=== PATIENT | male | born 1960 | race Caucasian/White ===

== ENCOUNTER → 2016-07-29 | Outpatient (CLI) | payer OTHER | LOC: GMAB 10:51 | PROVIDERS: ATTEND Family Medicine | DX: Z00.01 Encounter for general adult medical examination with abnormal findings (principal) ==

== ENCOUNTER → 2017-12-09 | Outpatient (CLI) | payer OTHER | LOC: GMAB 10:48 | PROVIDERS: ATTEND Family Medicine | DX: Z00.01 Encounter for general adult medical examination with abnormal findings (principal) ==

== ENCOUNTER → 2018-11-29 | Outpatient (CLI) | payer OTHER | LOC: GMAE 12:23 | PROVIDERS: ATTEND Family Medicine | DX: Z00.01 Encounter for general adult medical examination with abnormal findings (principal) ==

== ENCOUNTER 2019-11-24 20:36 | Inpatient (IN) | payer BC, OTHER ==
[2019-11-24] MEDS ORDERED: ONDANSETRON INJ 4 MG/2 ML VIAL IV ONE (21:23)
--- NOTE | 2019-11-24 21:45 | RAD ---
EXAM DESCRIPTION: Abdomen Series CLINICAL HISTORY: 58 years Male ,rlq pain 4 hours COMPARISON: None. TECHNIQUE: Frontal view chest x-ray and two views of the abdomen. FINDINGS: The cardiomediastinal silhouette appears unremarkable. No consolidating infiltrates or pleural effusions. Curvilinear density along the region of the gastric curvature which may reflect something recently ingested. Recommend clinical correlation. Mild degenerative changes in the spine. Moderate fecal material in the colon. No free air is identified beneath the hemidiaphragms. No dilated loops of bowel to suggest obstruction. IMPRESSION: No evidence of bowel obstruction Hyperdensity along the greater curvature of the stomach. Question something recently ingested by the patient Electronically signed by: Abbey Burgess MD 11/24/2019 9:44 PM CDT
[2019-11-24] MEDS ORDERED: SODIUM CHLORIDE 0.9% 1000ML 1,000 ML IVS ONE (21:49)
[2019-11-24] MEDS ORDERED: ACETAMINOPHEN 325 MG TAB PO ONE (22:14)
[2019-11-24] MEDS ORDERED: HYDROcodone 7.5MG/APAP 325MG 1 EA TAB PO ONE (22:47)
[2019-11-24] MEDS ORDERED: metroNIDAZOLE IV PREMIX 500MG 500 MG in PREMIX BAG 1 BAG IVPB ONE (22:47)
[2019-11-24] MEDS ORDERED: levoFLOXacin 500MG IV 500 MG in PREMIX BAG 1 BAG IVPB ONE (22:47)
--- NOTE | 2019-11-24 22:50 | CT ---
EXAM DESCRIPTION: Abdomen/Pelvis w/Contrast CLINICAL HISTORY: 58 years Male lower abd pain, leukocytosis, 5 hours COMPARISON: None. TECHNIQUE: Contiguous axial images obtained through the abdomen and pelvis following IV contrast. Reformatted images obtained. This exam was performed according to our department optimization program which includes automated exposure control, adjustment of the mA and/or kv according to patient size and/or use of iterative reconstruction technique. FINDINGS: Mild atelectatic changes. The liver appears unremarkable. The spleen and pancreas appear unremarkable. No adrenal masses. Small left renal cyst. No hydronephrosis. The gallbladder is visualized. Mild atherosclerotic calcifications. No aneurysmal dilatation of the aorta. There is some hyperdense material in the stomach likely from something recently ingested. No bowel obstruction. The appendix appears unremarkable. There is colonic diverticulosis. There is mild wall thickening in the proximal sigmoid colon with surrounding inflammatory changes consistent with diverticulitis. There is minimal free air adjacent to the area of diverticulitis microperforation. Small amount of free fluid in the pelvis. Mild curvature in the lower lumbar spine convex left. Degenerative changes in the spine. IMPRESSION: There is colonic diverticulosis with changes from diverticulitis in the proximal sigmoid colon. There is a small amount of free air consistent with microperforation. There is a small amount of free fluid in the pelvis. The findings were called to Dr. Jermaine Tim at 10:46 PM. Electronically signed by: Gareth Burgess MD 11/24/2019 10:48 PM CDT
--- NOTE | 2019-11-24 22:57 | ED.PDOC ---
History of Present Illness - General Chief Complaint: Abdominal Pain Stated Complaint: stomach pain since 5:30 Time Seen by Provider: 11/24/19 20:38 Source: patient Exam Limitations: no limitations - History of Present Illness Initial Comments: The patient is a 58-year-old male presented emergency room with lower abdominal pain that started in the early afternoon. He just charted having some nausea when he arrived here and the pain just started increasing as well. No fever up to this point. No diarrhea or constipation. Pain is in the lower abdomen but seems to move a little bit from the left to the right. No rebound or peritoneal signs. No definite palpable mass. Timing/Duration: other - 8 hours or so Severity: moderate Improving Factors: nothing Worsening Factors: nothing Associated Symptoms: denies symptoms Allergies/Adverse Reactions: Allergies NO KNOWN ALLERGY Allergy (Verified 11/24/19 21:16) Home Medications: Ambulatory Orders Amitriptyline HCl [Elavil] 25 mg PO 11/24/19 Fluticasone/Salmeterol 100/50 [Advair Diskus] 0 mcg INH BID 11/24/19 Rosuvastatin Calcium [Crestor] 40 mg PO 11/24/19 Review of Systems - Review of Systems Constitutional: States: no symptoms reported EENTM: States: no symptoms reported Respiratory: States: no symptoms reported Cardiology: States: no symptoms reported Gastrointestinal/Abdominal: States: abdominal pain, nausea - Just started here, vomiting Genitourinary: States: no symptoms reported Musculoskeletal: States: no symptoms reported Skin: States: no symptoms reported Neurological: States: no symptoms reported Endocrine: States: no symptoms reported All other Systems: No Change from Baseline Past Medical History (General) - Patient Medical History Hx Seizures: No Hx Stroke: No Hx Dementia: No Hx Asthma: Yes Hx of COPD: No Hx Cardiac Disorders: No Hx Congestive Heart Failure: No Hx Pacemaker: No Hx Hypertension: No Hx Thyroid Disease: No Hx Diabetes: No Hx Gastroesophageal Reflux: No Hx Renal Disease: No Hx Cancer: No Hx of HIV: No Hx Hepatitis C: No Hx MRSA: No - Vaccination History Hx Tetanus, Diphtheria Vaccination: No Hx Influenza Vaccination: No Hx Pneumococcal Vaccination: No Immunizations Up to Date: No - Social History Hx Tobacco Use: No Hx Alcohol Use: No Hx Substance Use: No Hx Substance Use Treatment: No Hx Depression: No Family Medical History - Family History Mother Family History: Unknown Physical Exam - Physical Exam General Appearance: Alert, No apparent distress Eye Exam: bilateral normal Ears, Nose, Throat: hearing grossly normal, normal ENT inspection Neck: full range of motion, supple Respiratory: lungs clear, normal breath sounds, no respiratory distress, no accessory muscle use Cardiovascular/Chest: normal peripheral pulses, regular rate, rhythm - Borderline tachycardia, no edema Peripheral Pulses: radial,right: 2+, radial,left: 2+ Gastrointestinal/Abdominal: soft, other - Vague lower abdominal discomfort to palpation. No guarding. No rebound or peritoneal signs. 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 He started having some nausea while he was here. Work-up shows what appears to be a source of sigmoid diverticulitis with a microperforation. A blood culture has been performed. The patient is going to be started on Levaquin and metronidazole. Nausea and pain medications can be used as necessary. He has received a liter of IV fluids since the CT scan. We will plan on admitting for continued care and monitoring. General surgery has been contacted in regard to the patient's presence. Hopefully treatment is being started soon enough to avoid the need for surgical intervention. 11/24/19 23:00 - Results/Orders Results/Orders: CT scan of the abdomen pelvis is concerning for sigmoid diverticulitis with a microperforation. Laboratory Tests 11/24/19 11/24/19 11/24/19 21:05 21:05 21:12 WBC 15.6 H RBC 5.43 Hgb 16.5 Hct 48.3 MCV 88.9 MCH 30.4 MCHC 34.2 RDW 13.5 Plt Count 180 MPV 7.5 Absolute Neuts (auto) 14.20 H Absolute Lymphs (auto) 0.60 L Absolute Monos (auto) 0.60 Absolute Eos (auto) 0.10 Absolute Basos (auto) 0.00 Neutrophils % 91.3 H Lymphocytes % 4.0 L Monocytes % 3.9 Eosinophils % 0.5 L Basophils % 0.3 Sodium 138 Potassium 3.8 Chloride 106 Carbon Dioxide 25 Anion Gap 10.8 L BUN 16 Creatinine 0.96 BUN/Creatinine Ratio 16.7 Random Glucose 98 Serum Osmolality 276.8 Calcium 9.2 Magnesium 1.9 Total Bilirubin 0.8 AST 21 ALT 18 Alkaline Phosphatase 76 Serum Total Protein 7.9 Albumin 4.6 Globulin 3.3 Albumin/Globulin Ratio 1.4 Amylase 26 L Lipase 34 Urine Color Yellow Urine Appearance Clear Urine pH 6.0 Ur Specific S [place] >= 1.030 Urine Protein Negative Urine Glucose (UA) Negative Urine Ketones Negative Urine Blood Negative Urine Nitrite Negative Urine Bilirubin Negative Urine Urobilinogen 0.2 Ur Leukocyte Esterase Negative Urine RBC 0 Urine WBC 0-1 Ur Epithelial Cells 0 Urine Bacteria 0 Urine Mucus Moderate Departure - Departure Clinical Impression: Diverticulitis large intestine Qualifiers: Diverticulitis bleeding: without bleeding Diverticulitis complication: with perforation and without abscess Qualified Code(s): K57.20 - Diverticulitis of large intestine with perforation and abscess without bleeding Disposition: Admit Patient Condition: Fair Departure Forms: ED Discharge - Pt. Copy, Patient Portal Self Enrollment Referrals: JOHANNY HURT MD [Primary Care Provider] - 1-2 Weeks Home Medications: Ambulatory Orders Amitriptyline HCl [Elavil] 25 mg PO 11/24/19 Fluticasone/Salmeterol 100/50 [Advair Diskus] 0 mcg INH BID 11/24/19 Rosuvastatin Calcium [Crestor] 40 mg PO 11/24/19 Decision To Admit - Decistion To Admit Decision to Admit Reason: Medical Nature Decision to Admit Date: 11/24/19 Decision to Admit Time: 22:59
[2019-11-24] MEDS ORDERED: levoFLOXacin 500MG IV 100 ML IVPB ONE (23:05)
[2019-11-24] MEDS ORDERED: metroNIDAZOLE IV PREMIX 500MG 100 ML IVPB ONE (23:06)
--- NOTE | 2019-11-24 23:33 | HP ---
SUPERVISING PHYSICIAN: Gilbert Tim MD CHIEF COMPLAINT: Left-sided abdominal pain. HISTORY OF PRESENT ILLNESS: Mr. Tim is a 58 year-old male patient who presented to the Emergency Room last night due to left lower quadrant pain he had been experiencing since yesterday afternoon. He started having some nausea on arrival to the Emergency Room. No fever was noted, no diarrhea or constipation. Workup in the Emergency Room showed he had a white count of 15,600 with hemoglobin of 16.5, hematocrit 40.3, platelet count at 180,000. Differential does show a left shift. Chemistries showed normal electrolytes, essentially everything within normal limits. Urinalysis was unremarkable. CT of the abdomen and pelvis with contrast per radiology interpretation showed chronic diverticulosis with changes from diverticulitis to the proximal sigmoid colon with a small amount of free air consistent with a microperforation. Dr. Oakes was consulted. The patient is going to be admitted for acute diverticulitis with microperforation. He was started on antibiotic coverage with Levaquin and Flagyl. He was admitted in stable condition. PAST MEDICAL HISTORY: 1. Hyperlipidemia. 2. Asthma. PAST SURGICAL HISTORY: None. CURRENT MEDICATIONS: 1. Maxalt 1 tablet daily as needed. 2. Crestor 40 mg at bedtime. 3. Amitriptyline 25 mL at bedtime. 4. Advair as directed. ALLERGIES: No known drug allergies. FAMILY HISTORY: Unremarkable. SOCIAL HISTORY: The patient is . 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 He has no children. He has never smoked. He dos not drink alcohol or use illicit drugs. REVIEW OF SYSTEMS: CONSTITUTIONAL: Denies general malaise, fevers, unexplained weight loss. HEENT: Denies headaches. vision changes, sore throat. nasal congestion, ear aches. HEART: Denies chest pain, palpitations, or syncopal episodes. RESPIRATORY: Denies coughing, wheezing, shortness of breath. ABDOMEN: As noted in history of present illness, left lower quadrant pain. Denies diarrhea or constipation or other bowel habit changes. EXTREMITIES: Denies arthralgias, joint swelling. SKIN: Denies lesions, rashes or moles. NEUROLOGIC: Denies ataxia, seizures, vision changes syncopal episodes. HEMATOLOGICAL: Denies unexplained bleeding, easy bruising or transfusion reactions. PHYSICAL EXAMINATION: VITAL SIGNS: Temperature 98.3, pulse 99, blood pressure 131/80, respirations 18, oxygen saturation 96% on room air. GENERAL: The patient does appear ill but does not look to be in any acute distress. He is alert. HEENT: Tympanic membranes are clear bilaterally. Oropharynx is pink and moist without any lesions. NECK: Supple, non-tender, full range of motion. No jugular venous distention. CHEST: Lung sounds are clear to auscultation without any rhonchi, rales, or wheezes. CARDIOVASCULAR: Regular rate and rhythm without appreciable murmurs, rubs, or gallops. ABDOMEN: Soft, rebound tenderness noted to the left lower quadrant region without guarding, without peritoneal signs. EXTREMITIES: No cyanosis, clubbing, or edema. NEUROLOGIC: He is alert and oriented x 3 with facial features being symmetrical. Extraocular movement within normal limits. There was no noted nystagmus. LABORATORY: White count 15 600, hemoglobin 16.5, hematocrit 48.3, platelet count 180,000. Differential shows a left shift. Chemistries showed normal electrolytes, normal creatinine at 0.96. Liver functions all was negative. Lipase normal at 34, amylase was low at 26. Urinalysis was within normal limits. MICROBIOLOGY: Blood cultures are pending. RADIOLOGY: CT of abdomen and pelvis did show a sigmoid diverticulitis with a small microperforation possible. ASSESSMENT: 1. Acute sigmoid diverticulitis with microperforation. In regards to the diverticulitis, we did start him on antibiotics to include Levaquin and Flagyl. 2. History of asthma. 3 History of migraine headaches. 4. History of hyperlipidemia. PLAN: I have requested a consultation with Dr. Oakes. He will be n.p.o. on antiemetics and pain management as needed. We will start him on DVT prophylaxis as per protocol. I would anticipate his length of stay to be at least 2 to 3 days. I have resumed his home medications as appropriate to care. Until we can transition him to outpatient management, we will continue to monitor and treat as needed. #[id number] [facility]
[2019-11-25] MEDS ORDERED: SODIUM CHLORIDE 0.9% (FLUSH) 10 ML SYG IV PRN (00:09)
[2019-11-25] MEDS ORDERED: IV SET AND CAP CHANGE INJ INJ SCH (00:30)
[2019-11-25] MEDS: metroNIDAZOLE IV PREMIX 500MG 500 MG in PREMIX BAG 1 BAG IVPB ONE ×2 (00:31→00:37)
[2019-11-25] MEDS: KCL 20MEQ/D5 1/2NS 1,000 ML IVS PRN ×3 (01:38→20:52)
[2019-11-25] MEDS ORDERED: ALBUTEROL SULFATE 2.5 MG/3 ML VIAL NEB PRN (01:44)
[2019-11-25] MEDS: HYDROmorphone HCL INJ 2 MG/ML VIAL IV PRN ×3 (04:23→16:52)
[2019-11-25] MEDS ORDERED: levoFLOXacin 500MG IV 500 MG in PREMIX BAG 1 BAG IVPB SCH (06:00)
[2019-11-25] MEDS: PANTOPRAZOLE SODIUM IV 40 MG VIAL IV SCH (06:07)
[2019-11-25] MEDS ORDERED: metroNIDAZOLE IV PREMIX 500MG 100 ML IVPB ONE ×3 (06:23→19:34)
[2019-11-25] MEDS: ONDANSETRON INJ 4 MG/2 ML VIAL IV PRN ×2 (08:57→16:53)
[2019-11-25] MEDS: metroNIDAZOLE IV PREMIX 500MG 500 MG in PREMIX BAG 1 BAG IVPB SCH ×3 (08:58→23:49)
[2019-11-25] MEDS: SODIUM CHLORIDE 0.9% (FLUSH) 10 ML SYG IV SCH ×2 (09:45→20:27)
[2019-11-25] MEDS ORDERED: RIZATRIPTAN BENZOATE PO PRN (12:09)
[2019-11-25] MEDS ORDERED: METOCLOPRAMIDE HCL INJ 10 MG/2 ML VIAL IV ONE (12:11)
[2019-11-25] MEDS: FLUTICASONE/SALMETEROL 100/50 1 PUFF INH INH SCH ×2 (12:54→20:25)
--- NOTE | 2019-11-25 17:19 | CONS ---
HISTORY OF PRESENT ILLNESS: The patient is a 58 year-old healthy male who developed abdominal pain yesterday. He denies previous episode of like illness. He had mild nausea, he denies blood per rectum or change in his bowel habits. He denies chills but has had low-grade feverish feel. PAST MEDICAL HISTORY: 1. Asthma. 2. Gastroesophageal reflux symptoms. CURRENT MEDICATIONS: 1. Elavil. 2. Advair Diskus. 3. Crestor. ALLERGIES: No known drug allergies. FAMILY HISTORY: Noncontributory. SOCIAL HISTORY: There is no history of tobacco, alcohol or substance abuse. PHYSICAL EXAMINATION: VITAL SIGNS: T-max 99.8, respiratory rate 18, pulse rate 70. HEENT: Sclera nonicteric. Mucous membranes are moist. NECK: Without adenopathy. BACK: No CVA tenderness. CHEST: There are equal breath sounds bilaterally. HEART: Regular rate and rhythm. ABDOMEN: Tender in the left lower quadrant in the suprapubic area without discrete mass or guarding. RECTAL: Examination deferred. EXTREMITIES: Without cyanosis, clubbing, or edema. LABORATORY: White count 15,000, this morning at 16,000. Hemoglobin went from 16 to 14. Differential showed 91% neutrophils. Platelet count 180,000. Liver functions were within normal limits. Creatinine 0.96, potassium 3.8. Urine clear. CT scan reveals inflammatory changes involving the sigmoid colon with inflammatory changers around it and a small amount of extracolonic air and a small amount of free fluid in the pelvis. ADMITTING DIAGNOSIS: 1. Probable diverticulitis. 2. Asthma. RECOMMENDATIONS: Continue the patient n.p.o. Continue to hydrate and continue the Levaquin and Flagyl. The patient should likely have 10 to 14 days of antibiotics at a minimum and definitely have a CT scan in 6 to 8 weeks from now. #[id number] [facility]
[2019-11-25] MEDS ORDERED: levoFLOXacin 500MG IV 100 ML IVPB ONE (19:35)
[2019-11-25] MEDS: ENOXAPARIN SODIUM 40 MG/0.4 ML SYG SUBCU SCH (20:24)
[2019-11-25] MEDS: ATORVASTATIN 20 MG TAB PO SCH ×2 (20:24→20:45)
[2019-11-25] MEDS: AMITRIPTYLINE HCL 25 MG TAB PO SCH (20:25)
[2019-11-25] MEDS: levoFLOXacin 500MG IV 500 MG in PREMIX BAG 1 BAG IVPB SCH (20:25)
[2019-11-26] MEDS: HYDROmorphone HCL INJ 2 MG/ML VIAL IV PRN (00:02)
[2019-11-26] MEDS: ONDANSETRON INJ 4 MG/2 ML VIAL IV PRN (00:03)
[2019-11-26] MEDS: PANTOPRAZOLE SODIUM IV 40 MG VIAL IV SCH (05:56)
[2019-11-26] MEDS ORDERED: metroNIDAZOLE IV PREMIX 500MG 100 ML IVPB ONE ×3 (08:12→19:26)
[2019-11-26] MEDS: FLUTICASONE/SALMETEROL 100/50 1 PUFF INH INH SCH ×2 (08:20→20:50)
[2019-11-26] MEDS: metroNIDAZOLE IV PREMIX 500MG 500 MG in PREMIX BAG 1 BAG IVPB SCH ×3 (08:26→23:43)
[2019-11-26] MEDS: SODIUM CHLORIDE 0.9% (FLUSH) 10 ML SYG IV SCH ×2 (08:27→20:45)
[2019-11-26] MEDS: KCL 20MEQ/D5 1/2NS 1,000 ML IVS PRN ×2 (08:28→23:42)
[2019-11-26] MEDS ORDERED: MAGNESIUM HYDROXIDE 30 ML UD PO ONE (12:24)
--- NOTE | 2019-11-26 15:59 | PN ---
SUPERVISING PHYSICIAN: Gilbert Tim MD DATE: 11/26/19 SUBJECTIVE: The patient notes his pain is still present but significantly decreased from yesterday. He has had no nausea or vomiting today and notes nurses were going to help his nausea yesterday. His headache has now been gone with Maxalt [id number]. He has had no further complaints. OBJECTIVE: VITAL SIGNS: Temperature 98.2, pulse 81, blood pressure 133/73, respirations 16, oxygen saturation 96% on room air. GENERAL: The patient looks to be [id number] comfortably in no acute distress. CHEST: Clear to auscultation. HEART: Regular rate and rhythm. ABDOMEN: Soft with some tenderness continued across the right lower quadrant but no rebound tenderness, no point tenderness or peritoneal signs. Bowel sounds are positive. EXTREMITIES: Episodes of edema. NEUROLOGIC: Alert and oriented x 3. LABORATORY: White count now normalized at 9,400, hemoglobin 14.3, hematocrit 41.4, platelet count at 147,000. Differential shows to be without a left shift. Chemistries showed normal electrolytes yesterday so no additional studies were no. No radiologic; studies completed today. ASSESSMENT: 1. Acute sigmoid diverticulitis with microperforation. In regards to the diverticulitis, we did start him on antibiotics to include Levaquin and Flagyl. 2. History of asthma. 3 History of migraine headaches. 4. History of hyperlipidemia. PLAN: I will continue to follow the patient along with Dr. Oakes. At this point, we will continue with antibiotics of Levaquin and Flagyl. We are going to advance his diet to clear liquids and see how he tolerates this. We will also decrease his IV fluids. Will give him a dose of milk of magnesia to assist in having a bowel movement. Hopefully, we can transition to outpatient management within the next 24 to48 hours. Until then, we will continue to monitor and treat as needed. #[id number] [facility]
[2019-11-26] MEDS ORDERED: levoFLOXacin 500MG IV 100 ML IVPB ONE (19:25)
[2019-11-26] MEDS: levoFLOXacin 500MG IV 500 MG in PREMIX BAG 1 BAG IVPB SCH (20:43)
[2019-11-26] MEDS: ATORVASTATIN 20 MG TAB PO SCH (20:44)
[2019-11-26] MEDS: AMITRIPTYLINE HCL 25 MG TAB PO SCH (20:44)
[2019-11-26] MEDS: ENOXAPARIN SODIUM 40 MG/0.4 ML SYG SUBCU SCH (20:44)
[2019-11-27] MEDS: PANTOPRAZOLE SODIUM IV 40 MG VIAL IV SCH (06:08)
[2019-11-27] MEDS ORDERED: metroNIDAZOLE IV PREMIX 500MG 100 ML IVPB ONE (08:10)
[2019-11-27] MEDS: SODIUM CHLORIDE 0.9% (FLUSH) 10 ML SYG IV SCH (08:12)
[2019-11-27] MEDS: metroNIDAZOLE IV PREMIX 500MG 500 MG in PREMIX BAG 1 BAG IVPB SCH (08:22)
[2019-11-27] MEDS: FLUTICASONE/SALMETEROL 100/50 1 PUFF INH INH SCH (09:25)
[2019-11-27 10:44] VITALS: BP 122/77; TEMP 98.1; O2SAT 96
--- NOTE | 2019-11-27 13:14 | DS ---
SUPERVISING PHYSICIAN: Andrez Franco MD ADMISSION DIAGNOSIS: 1. Acute sigmoid diverticulitis with microperforation. In regards to the diverticulitis, we did start him on antibiotics to include Levaquin and Flagyl. 2. History of asthma. 3 History of migraine headaches. 4. History of hyperlipidemia. DISCHARGE DIAGNOSIS: 1. Acute sigmoid diverticulitis with microperforation, stable. Treated with Levaquin and Flagyl with no abscess identified don admission. 2. History of asthma. 3 History of migraine headaches. 4. History of hyperlipidemia. REASON FOR HOSPITALIZATION: Mr. Tim is a 58 year-old male patient who presented to the Emergency Room last night due to left lower quadrant pain he had been experiencing since yesterday afternoon. He started having some nausea on arrival to the Emergency Room. No fever was noted, no diarrhea or constipation. Workup in the Emergency Room showed he had a white count of 15,600 with hemoglobin of 16.5, hematocrit 40.3, platelet count at 180,000. Differential does show a left shift. Chemistries showed normal electrolytes, essentially everything within normal limits. Urinalysis was unremarkable. CT of the abdomen and pelvis with contrast per radiology interpretation showed chronic diverticulosis with changes from diverticulitis to the proximal sigmoid colon with a small amount of free air consistent with a microperforation. Dr. Oakes was consulted. The patient is going to be admitted for acute diverticulitis with microperforation. He was started on antibiotic coverage with Levaquin and Flagyl. He was admitted in stable condition. LABORATORY: White count initially was 15,600 and at discharge was 7,100 with a slight left shift. Hemoglobin 13.8, hematocrit 40.9, platelet count 139,000. Chemistries on discharge showed normal electrolytes with BUN 12, creatinine 0.86. Bilirubin slightly elevated at 1.1, magnesium 1.8. Liver functions otherwise within normal limits as well as amylase and lipase. Urinalysis was within normal limits. MICROBIOLOGY: Blood cultures showed no growth at 48 hours. RADIOLOGY: He had an abdominopelvic CT with contrast that showed chronic diverticulosis with changes from diverticulitis in the proximal sigmoid colon with a small amount of free air consistent with microperforation with small amount of fluid in the pelvis. Please see that report for details. CONSULTATION: Surgical consultation by Favian Oakes MD. See his report for details. HOSPITAL COURSE: Mr. Tim was admitted as noted above for sigmoid diverticulitis with microperforation. He was started on Levaquin and Flagyl and made NPO. He had shown good clinical response, was able to tolerate a diet and was advanced to a full liquid diet prior to discharge. He was no longer having any abdominal pain. He was having bowel movements and was ambulating without any complications. Labs had normalized. It was felt that he had shown good improvement and could continue with outpatient management. DISCHARGE ASSESSMENT: VITAL SIGNS: Stable with temperature 98.1, pulse 83, blood pressure 122/77, respirations 16, saturation 96% on room air. GENERAL: The patient was comfortable and in no acute distress. CHEST: Clear to auscultation. HEART: Regular rate and rhythm. ABDOMEN: Soft, nontender to palpation. No rebound tenderness, no guarding, no point tenderness. Bowel sounds active. EXTREMITIES: No edema. NEUROLOGIC: Alert and oriented x3. PLAN: Mr. Tim is discharged on 11/27/19 with instructions to followup with Dr. Butler as scheduled on 12/04/19 at 9:15. He was to advance his diet to a low residual diet, low fiber diet as tolerated. He was to increase his activity as tolerated. He can use Motrin and Tylenol as needed for pain control and was encouraged to push fluids to prevent dehydration. He will be continued on antibiotic coverage for 14 days total with Flagyl 500 mg 3 times a day and Levaquin 750 mg daily. He is encouraged to take a probiotic or get on a probiotic schedule with yogurt as desired to prevent antibiotic associated diarrhea. He is to return to the ER for any concerning symptoms. He was given warnings to monitor for fevers, increasing pain or blood in stool and to call Dr. Butler's office with any questions. CONDITION ON DISCHARGE: Stable and improved. DISPOSITION: The patient was discharged home. #[id number] [facility]
== END 2019-11-27 12:42 | disposition home or self-care (01) | DRG 392 ==
LOC: ER 20:36 → OBSVTOIN 23:32 → MS 23:32
PROVIDERS: ADMIT Nurse Practitioner Family; ATTEND Nurse Practitioner Family
PROC: BW211ZZ Computerized Tomography (CT Scan) of Abdomen and Pelvis using Low Osmolar Contrast (ICD-10-PCS; principal; 2019-11-24)
DX: K57.20 Diverticulitis of large intestine with perforation and abscess without bleeding (principal); G43.909 Migraine, unspecified, not intractable, without status migrainosus; J45.909 Unspecified asthma, uncomplicated; K21.9 Gastro-esophageal reflux disease without esophagitis; E78.5 Hyperlipidemia, unspecified; Z79.51 Long term (current) use of inhaled steroids; Z79.899 Other long term (current) drug therapy

== ENCOUNTER → 2020-06-18 | Outpatient (CLI) | payer BC | LOC: GMAE 10:31 | PROVIDERS: ATTEND Family Medicine | DX: Z00.00 Encounter for general adult medical examination without abnormal findings (principal) ==